=== PATIENT | female | born 1950 | race African-American/Black ===

== ENCOUNTER 2024-01-18 14:59 | Outpatient (REF) | payer MEDICARE, SELFPAY ==
[2024-01-18 16:22] LABS: Alanine Aminotransferase 7 U/L (0-31); Albumin Level 3.8 g/dL (3.5-5.0); Alkaline Phosphatase 72 U/L (39-117); Aspartate Amino Transferase 12 U/L (5-31); Bilirubin Direct 0.2 mg/dL (0.0-0.5); Bilirubin Total 0.4 mg/dL (0.0-1.0); Total Protein 7.3 g/dL (6.5-8.0)
[2024-01-18 16:45] LABS: Vitamin B12 470 pg/mL (200-900)
[2024-01-20 06:19] LABS: Lyme Abs Screen <0.90 index
== END 2024-01-18 15:00 | disposition home or self-care (01) ==
LOC: HO.LAB 14:59
PROVIDERS: PCP Family Medicine; Visit Provider Psychiatry & Neurology Neurology
DX: G30.9 Alzheimer's disease, unspecified (principal)
CPT/HCPCS: 36415; 80076; 82607; 86617; 86618

== ENCOUNTER 2025-02-25 07:52 | Outpatient (REF) | payer MEDICARE, SELFPAY ==
--- NOTE | ~2025-02-25 | MR_ITS ---
EXAMINATION: MR BRAIN WITHOUT CONTRAST CLINICAL INFORMATION: Alzheimer's dementia. COMPARISON: 10/05/2016. TECHNIQUE: MRI of the brain was obtained using routine sequences without contrast. Examination performed on a 1.5 Kelsey Siemens high-field unit. FINDINGS: There is no diffusion restriction. There is no intracranial hemorrhage, acute infarction, mass effect, or edema. Cisternal and sulcal prominence overlying the parietal lobes bilaterally, and lesser prominence overlying the frontal lobes. No definite temporal lobe atrophy or dilatation of the temporal horns. No shift of midline. 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 There are a few scattered punctate and minimally confluent foci of white matter T2 hyperintensity in the periventricular, subcortical, and hemispheric deep white matter. These foci are nonspecific but statistically most likely relate to mild small vessel ischemic changes. Midline structures appear normally formed. Mild diffuse thinning of the corpus callosum. Partial empty sella present. Posterior fossa structures appear normal. Cerebellar tonsils are appropriately located. Major flow voids are preserved within the skull base. The globes and orbital contents demonstrate no abnormalities. Paranasal sinuses are clear bilaterally. Nasal septum is midline without spur. The mastoids and tympanic cavities are normally aerated. Extracranial soft tissues demonstrate no abnormalities. No suspicious bone marrow changes are evident. Atlantoaxial joint demonstrates mild to moderate degenerative changes. Mild TM joint degenerative changes present bilaterally. MR/MR head/brain wo con IMPRESSION: 1. No evidence of intracranial hemorrhage, acute infarction, mass effect, or edema. 2. Volume loss of the bilateral parietal greater than frontal lobes. 3. Mild small vessel ischemic changes. Electronically signed by: Demetrius Calhoun MD 02/25/2025 10:56 AM EDT
--- OUTSIDE RECORDS SUMMARY | 2025-02-25 07:55 | XMS_ITS | Data Portability ---
Author Organization [facility], [address] Address [address] [place] [address] Care Team Providers Care Learn To Swim Instructor Name Role Phone [facility] Care Provider Assessment No assessment recorded. Plan of Treatment Reminders Order Date Submit Date Provider Last Modified By Organization Details Last Modified Time Details Appointments None recorde d. Lab None recorde d. Referral None recorde d. Procedures None recorde d. Surgeries None recorde d. Imaging XR, toe(s) - right 5th toe. 023 05/31/20 23 [email or web address] [facility], [address] [facility] [place], [address], 12:28:34 Medication Orders None recorde d. Patient TargetsNo targets recorded. Patient Instructions Encounter Date Encounter Id Patient Instructions Last Modified By Organization Details Last Modified Time 05/31/2023 [id number] learning about rice (rest, ice, compression, and elevation) [email or web address] Not available 05/31/2023 18:54:03 contusion: care instructions [email or web address] Not available 05/31/2023 19:28:16 broken toe: care instructions [email or web address] Not available 05/31/2023 19:29:26 Keep toes loren taped as instructed for 4-6 weeks. Tape and padding can be changed/re-applied when soiled or wet. If tape is too tight, re-adjust until comfortable. Use the cast shoe for support while walking. Elevate your foot as much as possible. Over the counter tylenol may be taken if needed for pain. See printed instructions. Follow-up with your doctor in one week. Seek Emergency Medical evaluation for any worsening symptoms, particularly for uncontrolled pain, numbness or weakness or discoloration of the digit. [email or web address] Not available 05/31/2023 19:32:00 Reason for Referral None Reported. Results Created Date Observation Date Name Description Value Unit Range Abnormal Flag Note LastModifiedBy Organization Detail LastModifiedTime 05/31/20 23 05/31/2023 [email or web address] No observ ation record ed. [email or web address] [facility] [address] [facility], [place], [address], 06/01/2023 07:54:29 Result Notes None recorded. Problems Name Problem SNOMED Code Status Onset Date Resolution Date Notes Provider Name and Address Organization Details Recorded Time Asthma 011668555 Active 2022 Leny Forrest null, [place] - [facility] 3 18:45:29 Hypertensiv e disorder 86961167 Active 2022 Leny Forrest null, PA - [facility] 3 18:45:49 Mild dementia 6381669916721 08 Active 2022 Leny Forrest null, PA - [facility] 3 18:50:07 Problem Notes None recorded. Procedures Surgical History Date Name Laterality Status Provider Name and Address Organization Details Recorded Time 05/31/2023 LOREN TAPE completed Lina Aguilar MD [address] [place], [address], [place] - [facility] 05/31/2023 19:29:24 Imaging Results None recorded. Procedure Notes None recorded. Medical Equipment None Reported. Allergies Allergen ID Allergen Name Allergen Category Reaction Reaction Severity Criticality Documentation Date Start Date Code Code System Note Provider Name and Address Organization Details Recorded Time 786686 shellfish derived food,medi cation hives moderate high 05/31/2023 [id number] Leny Forrest null, [place] - [facility] 3 18:42:00 Medications Name Sig Start Date Stop Date Status Note LastModified by Organization Details LastModified Time atorvastatin active Not Available Not Available Not Available albuterol sulfate active Not Available Not Available Not Available lisinopril active Not Available Not Av ailable Not Available Vitals Date Recorded Body height Body mass index (BMI) Body weight Body temperature Heart rate Respiratory rate Oxygen saturation Oxygen saturation in Arterial blood by Pulse oximetry Systolic And Diastolic Provider Name and Address Organization Details Last Updated DateTime 162.56 cm 29.5 kg/m2 18537.8 9 g 97.2 [degF] 73 /min 18 /min 99 % 99 % 127/77 mm[Hg] Leny LONGORIA - [facility] 18:41:30 Social History Question Answer Notes LastModified by [employer] Details LastModified Time Tobacco Smoking Status Never Smoker Leny hampton [place] - [facility] 05/31/2023 18:47:38 What Is The Highest Grade Or Level Of School You Have Completed Or The Highest Degree You Have Received? TI36145-1 [email or web address] Information not available 05/31/2023 Have You Had A Flu Shot This Season? No [email or web address] Information not available 05/31/2023 If No, Would You Like A Flu Shot Today? No [email or web address] Information not available 05/31/2023 What Is Your Water Source? City [email or web address] Information not available 05/31/2023 What Is Your Heat Source? Other Oil Gas [email or web address] Information not available 05/31/2023 Have You Had Direct Contact, Or Contact During Intimacy, With Monkeypox Rash, Scabs, Or Body Fluids From A Person With Monkeypox? No [email or web address] Information not available 05/31/2023 What Was The Date Of Your Most Recent Tobacco Screening? 05/31/2023 [email or web address] Information not available 05/31/2023 What Is Your Relationship Status? [email or web address] Information not available 05/31/2023 Have You Recently Traveled Abroad? No [email or web address] Information not available 05/31/2023 Are You Currently In School? No Information not available 05/31/2023 Sex: Unknown Functional Status Question Answer Note LastModified by [employer] Details LastModified Time Do you use any illicit or recreational drugs? No [email or web address] Information not available 05/31/2023 Do you or have you ever used any other forms of tobacco or nicotine? No [email or web address] Information not available 05/31/2023 What is your level of alcohol consumption? None [email or web address] Information not available 05/31/2023 Are you currently employed? No retired [email or web address] Information not available 05/31/2023 Mental Status None recorded. Family History Nothing Reported Notes:not to patients knowle dge Medical History No medical history recorded. Gynecological History Statement/Question Response Date of LMP LMP N/A Obstetrics History GPAL:G 0 P 0 0 0 0 Past Encounters Encounter ID Performer Location Encounter Start Date Encounter Closed Date Diagnosis/Indication Diagnosis SNOMED-CT Code Diagnosis ICD10 Code Diagnosis Note [id number] [place]ilar [place] [address] [place] [address] 05/31/2023 17:17:33 05/31/2023 19:33:30 Contusion of lesser toe of right foot 5098305302 2280685 S90.121A Closed fra cture proximal phalanx, toe 339322249 S92.911A Health Concerns Section Related Observation LastModified by Organization Detai ls LastModified Time None Recorded Concern Status LastModified by Organization Details LastModified Time None Recorded Advance Directives Directive None Recorded Payers Insurance Date Sequence Insurance Name Policy Number Policy [place] Covered Member ID [place] Member ID Guarantor Name 05/31/2023 1 [employer] (POS) [id number] Dana Crowell [id number] Dana Sifuentes d Notes Date Note Type Note Provider Name and Address Organization Details Recorded Time 3 text/html ToesReported bypatient.source of patient informationInformation obtained from patient; Patient arrived at Urgent Care ambulatory Location:right; diffuse 5th toe Quality:aching Severity:moderate Duration:3 days Timing:acute Context:Struck toe twice - once on shower wall and once on bed post. Alleviating Factors:rest Aggravating Factors:standing; weightbearing Associated Symptoms:no weakness; no numbness; no tingling; no swelling; no redness; no warmth; no ecchymosis; no catching/locking; no popping/clicking; no buckling; no grinding; no instability; no drainage; no fever; no chills Previous Surgery:none Prior Imaging:none Previous Injections:none Previous PT:noneNotes:73 year old female presenting for evaluation of right 5th toe pain after accidentally striking it on a shower wall and on a bed post 3 days ago. No swelling, redness, numbness or weakness of the digit. The pain is worse with movement, palpation and weight bearing. Lina Aguilar MD [address] [place], [address], [place] - [facility] 05/31/2023 19:36:22 OBGyn Episode No OBEpisode recorded.
--- OUTSIDE RECORDS SUMMARY | 2025-02-25 07:55 | XMS_ITS | Clinical Summary ---
Author Organization [facility] Address [address] [place] [address] Phone Care Team Providers Care Water Attendant Name Role Phone Thanh Heaton MD Primary Care Pr ovider Allergies Active Allergy Reactions Criticality Noted Date Comments Shellfish Derived 06/13/2009 Medications lisinopril-hydroC HLOROthiazide (PRINZIDE,ZESTORE TIC) 10-12.5 mg per tabletIndications :Essential hypertension,CKD stage 3a, GFR 45-59 ml/min ([facility] V24, CMS/HCC V28) Take 1 tablet by mouth 1 (one) time each day. 90 tablet 1 025 Active montelukast (SINGULAIR) 10 mg tabletIndications :Asthma-COPD overlap syndrome (CMS/HCC V24, CMS/HCC V28) Take 1 tablet (10 mg total) by mouth at bedtime. 90 each 1 025 Active atorvastatin (LIPITOR) 10 mg tabletIndications :Mixed hyperlipidemia Take 1 tablet (10 mg total) by mouth 1 (one) time each day in the evening. 90 each 1 025 Active budesonide-formot Kaila (SYMBICORT) 80-4.5 mcg/actuation inhalerIndication s:Asthma-COPD overlap syndrome ([facility] V24, CMS/[facility] V28) Inhale 2 puffs by mouth 2 (two) times a day. Rinse mouth with water after use to reduce aftertaste and incidence of candidiasis. Do not swallow. 1 each 1 025 2024 Active albuterol 2.5 mg /3 mL (0.083 %) nebulizer solutionIndicatio ns:Asthma-COPD overlap syndrome ([facility] V24, [facility] V28) Take 3 mL (2.5 mg total) by nebulization every 8 (eight) hours if needed for wheezing. 75 mL 1 Active ergocalciferol (VITAMIN D-2) 1,250 mcg (50,000 unit) capsuleIndication s:Vitamin D deficiency Take 1 capsule (50,000 Units total) by mouth 1 (one) time per week. 12 capsule 025 2024 Active albuterol HFA (PROAIR HFA ; PROVENTIL HFA ; VENTOLIN HFA) 90 mcg/actuation inhalerIndication s:Asthma-COPD overlap syndrome ([facility] V24, [facility] V28) INHALE 1 PUFF BY MOUTH EVERY 6 (SIX) HOURS IF NEEDED FOR WHEEZING. 8.5 each 1 Active albuterol HFA (PROAIR HFA ; PROVENTIL HFA ; VENTOLIN HFA) 90 mcg/actuation inhalerIndication s:Asthma-COPD overlap syndrome ([facility] V24, [facility] V28) Inhale 1 puff by mouth every 6 (six) hours if needed for wheezing. 18 each 1 025 2024 Discontinued Active Problems Problem Noted Date Diagnosed Date Vitamin D deficiency 12/21/2024 Other idiopathic scoliosis, thoracolumbar region 12/19/2024 Spondylosis of lumbar region without myelopathy or radiculopathy 12/19/2024 CKD stage 3a, GFR 45-59 ml/min ([facility] V24, [facility] V28) 05/28/2024 Assessment & Plan (12/19/2024 4:46 PM EDT): Continue blood pressure control. Goal is less than 130/80. Will update labs Orders: lisinopril-hydroCHLOROthiazide (PRINZIDE,ZESTORETIC) 10-12.5 mg per tablet; Take 1 tablet by mouth 1 (one) time each day. Comprehensive metabolic panel; Future CBC and differential; Future Thyroid stimulating hormone with reflex to free t4 and free t3; Future Hyperlipidemia 05/28/2024 Assessment & Plan (12/19/2024 4:46 PM EDT): well-controlled. Continue atorvastatin Orders: atorvastatin (LIPITOR) 10 mg tablet; Take 1 tablet (10 mg total) by mouth 1 (one) time each day in the evening. Lipid panel with reflex to direct LDL; Future Mild Alzheimer's dementia wi thout behavioral disturbance, psychotic disturbance, mood disturbance, or anxiety (CMS/HCC V24, CMS/HCC V28) 05/28/2024 Assessment & Plan (12/19/2024 4:46 PM EDT): She is due for follow-up with her neurologist and a referral was placed Orders: Ambulatory referral to Neurology; Future Prediabetes 06/20/2023 Assessment & Plan (12/19/2024 4:46 PM EDT): Last A1c was 6.2. Will update labs Orders: Hemoglobin A1c; Future MCI (mild cognitive impairment) with memory loss 11/10/2020 BETI (obstructive sleep apnea) 01/01/2020 Assessment & Plan (12/19/2024 4:48 PM EDT): She has never been on CPAP and I do not have any records of her previous sleep studies but there is a diagnosis of BETI on her chart dating back to 2019. Referred to sleep medicine for repeat sleep testing and treatment if needed Orders: Ambulatory referral to Sleep Medicine; Future Overweight (BMI 25.0-29.9) 05/01/2019 Essential hypertension 12/22/2017 Assessment & Plan (12/19/2024 4:46 PM EDT): Well-controlled. Continue current medication Orders: lisinopril-hydroCHLOROthiazide (PRINZIDE,ZESTORETIC) 10-12.5 mg per tablet; Take 1 tablet by mouth 1 (one) time each day. 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 albuterol prn Assessment & Plan (12/19/2024 4:46 PM EDT): Advised to use Symbicort twice daily as prescribed. Continue albuterol as needed and Singulair nightly. Will update PFTs. Given the dyspnea on exertion which is mild , likely related to her asthma/COPD and has been ongoing for several months, will check BNP Her last echocardiogram was in May 2019 and completely normal Orders: montelukast (SINGULAIR) 10 mg tablet; Take 1 tablet (10 mg total) by mouth at bedtime. budesonide-formoteroL (SYMBICORT) 80-4.5 mcg/actuation inhaler; Inhale 2 puffs by mouth 2 (two) times a day. Rinse mouth with water after use to reduce aftertaste and incidence of candidiasis. Do not swallow. albuterol HFA (PROAIR HFA ; PROVENTIL HFA ; VENTOLIN HFA) 90 mcg/actuation inhaler; Inhale 1 puff by mouth every 6 (six) hours if needed for wheezing. albuterol 2.5 mg /3 mL (0.083 %) nebulizer solution; Take 3 mL (2.5 mg total) by nebulization every 8 (eight) hours if needed for wheezing. Pulmonary function testing: Spirometry, Spirometry with Bronchodilator B-type natriuretic peptide; Future Encounters Date Type Department Care Team Description 12/19/2024 3:00 PM EDT Office Visit Adult Medicine [address] [phone] Thanh Heaton MD Annual physical exam (Primary Dx); Asthma-COPD overlap syndrome ([facility] V24, [facility] V28); Essential hypertension; Mixed hyperlipidemia; CKD stage 3a, GFR 45-59 ml/min ([facility] V24, [facility] V28); Prediabetes; Mild early onset Alzheimer's dementia without behavioral disturbance, psychotic disturbance, mood disturbance, or anxiety ([facility] V24, [facility] V28); BETI (obstructive sleep apnea); Need for vaccination against Streptococcus pneumoniae; Osteopenia of multiple sites from Last 3 Months Immunizations Name Administration Dates Next Due Pneumococcal conjugate 20 va lent (Prevnar 20, PCV 20) 2mo and older 12/19/2024 Td Tetanus diptheria (Tdvax) 7yo and older 09/10,12/09/2006 Surgical History Surgery Date Site/Laterality Comments CERVICAL BIOPSY W/ LOOP ELECTRODE EXCISION 03/28 PROCEDURE: GA CONIZATION CERVIX W/WO D&C RPR ELTRD EXC; COMMENT: BARBARA III in deep endocervical glands, margins free COLONOSCOPY 09/20/2024 no repeat needed Medical History Medical History Date Comments Unspecified asthma(493.90) DX:Un specified asthma(493.90) Other specified personal his tory presenting hazards to health(V15.89) 08-31-05 DX:Other specifie d personal history presenting hazards to health(V15.89); COMMENT: Moderate Dysplasia Unspecified asthma(493.90) 12/08/2006 DX:Un specified asthma(493.90); COMMENT: on advair and singular baseline. 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 DX:Carcinoma in situ of cervix uteri; COMMENT: LEEP with BARBARA III in deep endocervical glands Obesity DX:Obesity Essential hypertension 12/22/2017 Family History Medical History Relation Name Comments Other: gout Father Hypertension Mother alzheimers, d age 83 Heart attack Sister 1 glaucoma Thyroid disease Sister 2 Breast cancer Neg Hx Colon cancer Neg Hx Ovarian cancer Neg Hx Relation Name Status Comments Father Maternal Grandfather Maternal Grandmother Mother Paternal Grandfather Paternal Grandmother Sister 1 Sister 2 Social History Tobacco Use Types Packs/Day Years Used Date Smoking Tobacco: Former Smokeless Tobacco: Never Tobacco Cessation:Counseling Given: Not Answered Comments:She quit smoking about 50 years; smoked 1 Cig a day for about 2 years Alcohol Use Standard Drinks/Week Comments No 0 (1 standard drink = 0.6 oz pur e alcohol) Housing Instability Answer Date Recorde d Are you worried that in the next 2 months you may not have stable housing? No 12/19/2024 Food Access & Nutrition Answer Date Rec orded Do you have access to a vari ety of food including fruits and vegetables? Yes 12/19/2024 Access to Healthcare Answer Date Record ed Within the last 3 months, ho w many times did you visit the emergency department for your medical care? 0 12/19/2024 Health Literacy Answer Date Recorded How often do you need to hav e someone help you when you read instructions, pamphlets, or other written material from your doctor or pharmacy? Never 12/19/2024 Caregiver: How often do you need to have someone help you when you read instructions, pamphlets, or other written material from your doctor or pharmacy? Not on file 12/19/2024 Financial Risk Answer Date Recorded How hard is it for you to pa y for the very basics like food, housing, medical care, and air conditioning / heating? Not very hard 12/19/2024 Transportation Answer Date Recorded Has the lack of transportati on kept you from meetings, work, or from getting things needed for daily living? No Has the lack of transportati on kept you from medical appointments or from getting medications? No 12/19/2024 Social Isolation Answer Date Recorded How often do you feel lonely or isolated from th ose around you? Never 12/19/2024 Food Risk Answer Date Recorded Within the past 12 months we worried whether our food would run out before we got money to buy more. Never true 12/19/2024 Within the past 12 months th e food we bought just didn't last and we didn't have money to get more. Never true 12/19/2024 Dependent Care Answer Date Recorded Do you need help finding or paying for care for your loved ones. For example, childcare director or elderly care for an older adult? No 12/19/2024 Education Answer Date Recorded Do you think completing more education or training, like finishing a GED, going to college, or learning a trade, would be helpful for you? No 12/19/2024 Employment and Income Answer Date Recor ded During the last four weeks, have you been actively looking for work? No 12/19/2024 Living Situation Answer Date Recorded What is your living situation? 0 12/19/2024 Interpersonal Safety Answer Date Record ed Physical Abuse 09/20/2024 Verbal Abuse 09/20/2024 Comments No Sex and Gender Information Value Date Recorded Sex Assigned at Not on file Legal Sex Female 9:53 AM EST Gender Identity Not on file Sexual Orientation Not on file Obstetrics History Last Filed Vital Signs Vital Sign Reading Time Taken Comments Blood Pressure 115/65 12/19/2024 3:07 PM EDT Pulse 66 12/19/2024 3:07 PM EDT Temperature 36.6 C (97.8 F) 12/19/2024 3:07 PM EDT Respiratory Rate 17 12/19/2024 3:07 PM EDT Oxygen Saturation 97% 09/20/2024 10:20 AM EST Inhaled Oxygen Concentration - - Weight 76.2 kg (168 lb) 12/19/2024 3:07 PM EDT Height 166.4 cm (5' 5.5 ) 12/19/2024 3:07 PM EDT Body Mass Index 27.53 12/19/2024 3:07 PM EDT Plan of Treatment Upcoming Encounters Date Type Department Care Team (Late st Contact Info) Description 06/27/2025 1:30 PM EST Appointment Radiology Department [address] [phone] Health Maintenance Due Date Last Done Comments COVID-19 Vaccine (#1) 1956 Zoster Vaccines (1 of 2) 1970 RSV Immunization Adult Patients (1 - Risk 60-74 years 1-dose series) 2011 Medicare Annual Wellness Visit 07/31/2022 Influenza Vaccine (#1) 2025 Falls Risk Assessment 09/20/2025 09/20/2024 Depression Screening 12/19/2025 12/19/2024 Social Influencers of Health Screening 12/19/2025 12/19/2024 Hypertension/CHF/CAD Annual BMP Blood Test 12/20/2025 12/20/2024, 05/30/2024, 05/30/2024 Breast Cancer Screening 06/06/2026 06/06/20 24, 06/06/2024, 05/31/2023, Additional history exists Cholesterol Screening (Lipid Panel) 12/20/2029 12/20/2024, 05/30/2024, 05/30/2024 DTaP,Tdap,and Td Vaccines (3 - Td or Tdap) 09/10/2031 09/10/2021, 12/09/2006 Osteoporosis Screening (Bone Density Screening) 05/31/2033 05/31/2023 Hepatitis C Screening Completed 12/11/2013 Colorectal Cancer Screening: Colonoscopy Discontinued 09/20/2024 Pneumococcal Vaccine: 50+ Years Completed 12/19/2024 HIB Vaccines Aged Out No longer eligi ble based on patient's age to complete this topic HPV Vaccines Aged Out No longer eligi ble based on patient's age to complete this topic Hepatitis A Vaccines Aged Out No long er eligible based on patient's age to complete this topic Hepatitis B Vaccines Aged Out No long er eligible based on patient's age to complete this topic IPV Vaccines Aged Out No longer eligi ble based on patient's age to complete this topic MMR Vaccines Aged Out No longer eligi ble based on patient's age to complete this topic Meningococcal ACWY Vaccine Aged Out N o longer eligible based on patient's age to complete this topic Meningococcal B Vaccine Aged Out No l onger eligible based on patient's age to complete this topic RSV Immunization Patients Under 20 months Aged Out No longer eligible based on patient's age to complete this topic Varicella Vaccines Aged Out No longer eligible based on patient's age to complete this topic Procedures Procedure Name Priority Date/Time Associated Diagnosis Comments THYROID STIMULATING HORMONE Routine 01/04/2025 2:39 PM EDT Alzheimer's disease ([facility]/HCC V24, CMS/[facility] V28) VITAMIN B12 Routine 01/04/2025 2:39 PM EDT Alzheimer's disease (CMS/HCC V24, CMS/HCC V28) CBC WITH AUTO DIFFERENTIAL Routine 12/20/2024 11:01 AM EDT CKD stage 3a, GFR 45-59 ml/min (CMS/HCC V24, CMS/HCC V28) COMPREHENSIVE METABOLIC PANEL Routine 12/20/2024 11:01 AM EDT CKD stage 3a, GFR 45-59 ml/min (CMS/HCC V24, [facility] V28) LIPID PANEL WITH REFLEX TO DIRECT LDL Routine 12/20/2024 11:01 AM EDT Mixed hyperlipidemia HEMOGLOBIN A1C Routine 12/20/2024 11:01 AM EDT Prediabetes CBC AND DIFFERENTIAL Routine 12/20/2024 11:01 AM EDT CKD stage 3a, GFR 45-59 ml/min ([facility]/HCC V24, CMS/HCC V28) B-TYPE NATRIURETIC PEPTIDE Routine 12/20/2024 11:01 AM EDT Asthma-COPD overlap syndrome ([facility] V24, [facility] V28) THYROID STIMULATING HORMONE WITH REFLEX TO FREE T4 AND FREE T3 Routine 12/20/2024 11:01 AM EDT Essential hypertension CKD stage 3a, GFR 45-59 ml/min ([facility] V24, [facility] V28) VITAMIN D 25 HYDROXY Routine 12/20/2024 11:01 AM EDT Osteopenia of multiple sites COLONOSCOPY Routine 09/20/2024 9:59 AM EST Special screening for malignant neoplasms, colon SCREENING MAMMOGRAPHY BI 2-VIEW BREAST INC CAD Routine 06/06/2024 2:19 PM EDT Encounter for screening mammogram for malignant neoplasm of breast DXA BONE DENSITY STUDY 1+ SITS AXIAL SKEL Routine 05/31/2023 2:09 PM EDT Encounter for screening for osteoporosis HEPATITIS C SCREENING Routine 12/11/2013 from Last 3 Months or Most Recently Relevant to Health Maintenance Results * Thyroid stimulating hormone (01/04/2025 2:39 PM EDT) TSH 1.55 0.40 - 4.00 mcIU/mL LAB CHEMISTRY METHOD 01/04/2025 8:[address] [facility] Blood Venous blood specimen / Unknown Venipuncture / Unknown 01/04/2025 2:39 PM EDT 01/04/2025 2:39 PM EDT Kemi Hoff MD LAB BLOOD ORDERABLES Final Result Performing Organization Address [facility]/ZIP Co de Phone Number [facility] [address] [place] [address], [place] [phone] * Vitamin B12 (01/04/2025 2:39 PM EDT) Vitamin B-12 438 250 - 900 pcg/mL LAB CHEMISTRY METHOD 01/04/2025 8:[address] [facility] Blood Venous blood specimen / Unknown Venipuncture / Unknown 01/04/2025 2:39 PM EDT 01/04/2025 2:39 PM EDT Kemi Hoff MD LAB BLOOD ORDERABLES Final Result Performing Organization Address [facility] Co de Phone Number [facility] [address] [place] [address], [place] [phone] * Thyroid stimulating hormone with reflex to free t4 and free t3 (12/20/2024 11:01 AM EDT) Pathologist [facility] TSH 2.38 0.40 - 4.00 mcIU/mL LAB CHEMISTRY METHOD 12/20/2024 3:[address] [facility] Blood Venous blood specimen / Unknown Venipuncture / Unknown 12/20/2024 11:01 AM EDT 12/20/2024 11:01 AM EDT Thanh Heaton MD LAB BLOOD ORDERA BLES Final Result Performing Organization Address [facility]/ZIP Co de Phone Number [facility] [address] [place] [address], [place] [phone] * (ABNORMAL) Lipid panel with reflex to direct LDL (12/20/2024 11:01 AM EDT) Cholesterol 139 0 - 200 mg/dL LAB CHEMISTRY METHOD 12/20/2024 2:[address] [facility] Triglycerides 110 0 - 150 mg/dL LAB CHEMISTRY METHOD 12/20/2024 2:[address] [facility] HDL 38(L) >=40 mg/dL LAB CHEMISTRY METHOD 12/20/2024 2:[address] [facility] LDL Calculated 79 0 - 100 mg/dL LAB CHEMISTRY METHOD 12/20/2024 2:[address] [facility] VLDL Cholesterol Asa 22 mg/dL LAB CHEMISTRY METHOD 12/20/2024 2:[address] [facility] Non HDL Chol. (LDL+VLDL) 101 <145 mg/dL LAB CHEMISTRY METHOD 12/20/2024 2:[address] [facility] Chol/HDL Ratio 3.7 0.0 - 4.4 LAB CHEMISTRY METHOD 12/20/2024 2:[address] [facility] Blood Venous blood specimen / Unknown Venipuncture / Unknown 12/20/2024 11:01 AM EDT 12/20/2024 11:01 AM EDT Thanh Heaton MD LAB BLOOD ORDERA BLES Final Result [facility] [address] [place] [address], [place] [phone] * (ABNORMAL) CBC auto differential (12/20/2024 11:01 AM EDT) WBC 4.9 4.8 - 10.8 K/mcL LAB HEMETOLOGY METHOD 12/20/2024 1:[address] [facility] RBC 4.00 3.80 - 4.80 M/mcL LAB HEMETOLOGY METHOD 12/20/2024 1:[address] [facility] Hemoglobin 11.9 11.5 - 16.0 g/dL LAB HEMETOLOGY METHOD 12/20/2024 1:[facility] Hematocrit 38.8 35.0 - 47.0 % LAB HEMETOLOGY METHOD 12/20/2024 1:[facility] MCV 97.0 79.0 - 98.0 FL LAB HEMETOLOGY METHOD 12/20/2024 1:[facility] MCH 29.8 27.0 - 32.0 pcg LAB HEMETOLOGY METHOD 12/20/2024 1:56 PM [facility] MCHC 30.7(L) 32.0 - 37.0 g/dL LAB HEMETOLOGY METHOD 12/20/2024 1:56 PM [facility] RDW 12.7 11.0 - 15.0 % LAB HEMETOLOGY METHOD 12/20/2024 1:[facility] Platelets 344 130 - 400 K/mcL LAB HEMETOLOGY METHOD 12/20/2024 1:56 PM [facility] MPV 9.7 7.0 - 11.0 FL LAB HEMETOLOGY METHOD 12/20/2024 1:[facility] NRBC 0.0 <1.0 % LAB HEMETOLOGY METHOD 12/20/2024 1:[facility] NRBC Absolute 0.00 <0.10 K/mcL LAB HEMETOLOGY METHOD 12/20/2024 1:[facility] Neutrophils Relative 53.3 % LAB HEMETOLOGY METHOD 12/20/2024 1:[facility] Lymphocytes Relative 34.6 % LAB HEMETOLOGY METHOD 12/20/2024 1:[address] [facility] Monocytes Relative 8.4 % LAB HEMETOLOGY METHOD 12/20/2024 1:[address] [facility] Eosinophils Relative 2.9 % LAB HEMETOLOGY METHOD 12/20/2024 1:56 PM [facility] Basophils Relative 0.6 % LAB HEMETOLOGY METHOD 12/20/2024 1:56 PM [facility] Immature Granulocytes Relative 0.2 % LAB HEMETOLOGY METHOD 12/20/2024 1:56 PM [facility] Neutrophils Absolute 2.61 1.50 - 7.00 K/mcL LAB HEMETOLOGY METHOD 12/20/2024 1:56 PM [facility] Lymphocytes Absolute 1.69 1.00 - 5.00 K/mcL LAB HEMETOLOGY METHOD 12/20/2024 1:56 PM [facility] Monocytes Absolute 0.41 0.20 - 1.00 K/mcL LAB HEMETOLOGY METHOD 12/20/2024 1:56 PM [facility] Eosinophils Absolute 0.14 0.00 - 0.50 K/mcL LAB HEMETOLOGY METHOD 12/20/2024 1:56 PM [facility] Basophils Absolute 0.03 0.00 - 0.20 K/mcL LAB HEMETOLOGY METHOD 12/20/2024 1:56 PM [facility] Immature Granulocytes Absolute 0.01 0.00 - 0.03 K/mcL LAB HEMETOLOGY METHOD 12/20/2024 1:56 PM [facility] Blood Venous blood specimen / Unknown Venipuncture / Unknown 12/20/2024 11:01 AM EDT 12/20/2024 11:01 AM EDT Thanh Heaton MD LAB BLOOD ORDERA BLES Final Result Performing Organization Address [facility]/ZIP Co de Phone Number [facility] [address] [place] [address], * (ABNORMAL) Vitamin D 25 hydroxy (12/20/2024 11:01 AM EDT) Pathologist [facility] Vit D, 25-Hydroxy 11.8(L) 30.0 - 80.0 ng/mL LAB CHEMISTRY METHOD 12/20/2024 3:[address] [facility] Blood Venous blood specimen / Unknown Venipuncture / Unknown 12/20/2024 11:01 AM EDT 12/20/2024 11:01 AM EDT Thanh Heaton MD LAB BLOOD ORDERA BLES Final Result Performing Organization Address [facility]/ZIP Co de Phone Number [facility] [address] [place] [address], [place] [phone] * B-type natriuretic peptide (12/20/2024 11:01 AM EDT) [facility] BNP 13 <=100 pcg/mL LAB CHEMISTRY METHOD 12/20/2024 2:[address] [facility] Blood Venous blood specimen / Unknown Venipuncture / Unknown 12/20/2024 11:01 AM EDT 12/20/2024 11:01 AM EDT Thanh Heaton MD LAB BLOOD ORDERA BLES Final Result Performing Organization Address [facility]/ZIP Co de Phone Number [facility] [address] [place] [address], [place] [phone] * Hemoglobin A1c (12/20/2024 11:01 AM EDT) Pathologist [facility] Hemoglobin A1C 6.3 <6.5 % LAB CHEMISTRY METHOD 12/20/2024 10:[address] [facility] Mean Bld Glu Estim. 134 mg/dL LAB CHEMISTRY METHOD 12/20/2024 10:22 PM [facility] Blood Venous blood specimen / Unknown Venipuncture / Unknown 12/20/2024 11:01 AM EDT 12/20/2024 11:01 AM EDT Thanh Heaton MD LAB BLOOD ORDERA BLES Final Result [facility] [address] [place] [address], * (ABNORMAL) Comprehensive metabolic panel (12/20/2024 11:01 AM EDT) Sodium 141 133 - 145 mmol/L LAB CHEMISTRY METHOD 12/20/2024 2:55 PM [facility] Potassium 3.7 3.5 - 5.5 mmol/L LAB CHEMISTRY METHOD 12/20/2024 2:55 PM [facility] Chloride 106 96 - 110 mmol/L LAB CHEMISTRY METHOD 12/20/2024 2:55 PM [facility] CO2 30 21 - 32 mmol/L LAB CHEMISTRY METHOD 12/20/2024 2:55 PM [facility] Anion Gap 5 3 - 11 LAB CHEMISTRY METHOD 12/20/2024 2:55 PM [facility] Glucose 105(H) 70 - 100 mg/dL LAB CHEMISTRY METHOD 12/20/2024 2:55 PM [facility] BUN 21 5 - 25 mg/dL LAB CHEMISTRY METHOD 12/20/2024 2:55 PM [facility] Creatinine 0.96 0.50 - 1.10 mg/dL LAB CHEMISTRY METHOD 12/20/2024 2:55 PM [facility] eGFR 63 >=60 mL/min/1. 73m2 LAB CHEMISTRY METHOD 12/20/2024 2:[address] [facility] Comment:Calculation based on the Chronic Kidney Disease Epidemiology Collaboration (CKD-EPI) equation refit without adjustment for race. BUN/Creatinine Ratio 21.9 LAB CHEMISTRY METHOD 12/20/2024 2:[address] [facility] Calcium 9.5 8.5 - 10.5 mg/dL LAB CHEMISTRY METHOD 12/20/2024 2:[address] [facility] AST (SGOT) 11 10 - 42 unit/L LAB CHEMISTRY METHOD 12/20/2024 2:55 PM [facility] ALT (SGPT) 16 10 - 60 unit/L LAB CHEMISTRY METHOD 12/20/2024 2:55 PM [facility] Alkaline Phosphatase 80 42 - 121 unit/L LAB CHEMISTRY METHOD 12/20/2024 2:55 PM [facility] Total Protein 7.6 6.0 - 8.0 g/dL LAB CHEMISTRY METHOD 12/20/2024 2:55 PM [facility] Albumin 3.5 3.2 - 5.0 g/dL LAB CHEMISTRY METHOD 12/20/2024 2:55 PM [facility] Total Bilirubin 0.3 0.0 - 1.4 mg/dL LAB CHEMISTRY METHOD 12/20/2024 2:[address] [facility] Blood Venous blood specimen / Unknown Venipuncture / Unknown 12/20/2024 11:01 AM EDT 12/20/2024 11:01 AM EDT Thanh Heaton MD LAB BLOOD ORDERA BLES Final Result [facility] [address] [place] [address], * COLONOSCOPY Anesthesia - MAC; [facility] ENDOSCOPY (09/20/2024 9:59 AM EST) Anatomical Region Laterality Modality Other 09/20/2024 9:40 AM EST Impressions 09/20/2024 10:00 AM EST - Diverticulosis in the left colon. - The examination was otherwise normal on direct and retroflexion views. - No specimens collected. Recommendation: - Patient has a contact number available for emergencies. The signs and symptoms of potential delayed complications were discussed with the patient. Return to normal activities tomorrow. Written discharge instructions were provided to the patient. - Resume previous diet. - Continue present medications. - No repeat colonoscopy due to the absence of advanced adenomas. Narrative 09/20/2024 10:[address] [facility] Patient Name: Dana Crowell Procedure Date: 09/20/2024 9:40 AM Date of : 1950 Age: 74 Gender: Female Note Status: Finalized Attending MD: Corky Smith MD, Procedure Date No Time: 09/20/2024 Procedure: Colonoscopy Indications: Screening for colorectal malignant neoplasm Providers: Corky Smith MD Referring MD: Isaak Do MD Medicines: Monitored Anesthesia Care Complications: No immediate complications. Estimated Blood Loss: Estimated blood loss: none. Procedure: After I obtained informed consent, the scope was passed under direct vision. Throughout the procedure, the patient's blood pressure, pulse, and oxygen saturations were monitored continuously. The Olympus Pediatric Colonoscope was introduced through the anus and advanced to the cecum, identified by appendiceal orifice and ileocecal valve. The colonoscopy was performed without difficulty. The patient tolerated the procedure well. The quality of the bowel preparation was good. Findings: Multiple small and large-mouthed diverticula were found in the left colon. The exam was otherwise without abnormality on direct and retroflexion views. Procedure Code(s): --- Professional --- 17311, Colonoscopy, flexible; diagnostic, including collection of specimen(s) by brushing or washing, when performed (separate procedure) Diagnosis Code(s): --- Professional --- Z12.11, Encounter for screening for malignant neoplasm of colon K57.30, Diverticulosis of large intestine without perforation or abscess without bleeding CPT copyright 2020 [employer]. All rights reserved. The codes documented in this report are preliminary and upon electric gas appliances demonstrator review may be revised to meet current compliance requirements. MD Corky Hightower MD 09/20/2024 10:00:01 AM This report has been signed electronically.Cokry Smith MD Number of Addenda: 0 Note Initiated On: 09/20/2024 9:40 AM Scope In: Scope Out: Endoscopy Department at [facility] - [address] [place] [phone] Procedure Note Corky Smith MD - 09/20/2024 [facility] Patient Name: Dana Crowell Procedure Date: 09/20/2024 9:40 AM Date of : 1950 Age: 74 Gender: Female Note Status: Finalized Attending MD: Corky Smith MD, Procedure Date No Time: 09/20/2024 Procedure: Colonoscopy Indications: Screening for colorectal malignant neoplasm Providers: Corky Smith MD Referring MD: Isaak Do MD Medicines: Monitored Anesthesia Care Complications: No immediate complications. Estimated Blood Loss: Estimated blood loss: none. Procedure: After I obtained informed consent, the scope was passed under direct vision. Throughout theprocedure, the patient's blood pressure, pulse, and oxygen saturations were monitored continuously. TheOlympus Pediatric Colonoscope was introduced through theanus and advanced to the cecum, identified byappendiceal orifice and ileocecal valve. The colonoscopy was performed without difficulty. The patient tolerated the procedure well. The quality of the bowel preparation was good. Findings: Multiple small and large-mouthed diverticula were found in the left colon. The exam was otherwise without abnormality ondirect and retroflexion views. Procedure Code(s): --- Professional --- 51201, Colonoscopy, flexible; diagnostic, including collection of specimen(s) by brushing or washing,when performed (separate procedure) Diagnosis Code(s): --- Professional --- Z12.11, Encounter for screening for malignantneoplasm of colon K57.30, Diverticulosis of large intestine without perforation or abscess without bleeding CPT copyright 2020 [employer]. All rights reserved. The codes documented in this report are preliminary and upon electric gas appliances demonstrator reviewmay be revised to meet current compliance requirements. MD Corky Hightower MD 09/20/2024 10:00:01 AM This report has been signed electronically.Corky Smith MD Number of Addenda: 0 Note Initiated On: 09/20/2024 9:40 AM Scope In: Scope Out: Endoscopy Department at [facility] - [address] [place] [phone] IMPRESSION: - Diverticulosis in the left colon. - The examination was otherwise normal on directand retroflexion views. - No specimens collected. Recommendation: - Patient has a contact number available for emergencies. The signs and symptoms of potential delayed complications were discussed with thepatient. Return to normal activities tomorrow. Written discharge instructions were provided to thepatient. - Resume previous diet. - Continue present medications. - No repeat colonoscopy due to the absence ofadvanced adenomas. Isaak Do MD GI~PROCEDURE ORDERABLES Final Re sult * SCREENING MAMMOGRAPHY BI 2-VIEW BREAST INC CAD (06/06/2024 2:19 PM EDT) Anatomical Region Laterality Modality Radiographic Nany ging 05/31/2023 2:39 PM EDT Narrative 06/07/2024 10:00 AM EDT This is a summary report. The complete report is available in the patient's medical record. If you cannot access the medical record, please contact the sending organization for a detailed fax or copy. Full field digital screening tomosynthesis mammography, reviewed with CAD and compared to previous. The breasts are composed of fatty and fibroglandular tissue. No suspicious mass, architectural distortion or suspicious calcifications are identified. IMPRESSION: : No mammographic evidence of malignancy. BIRADS 1-Negative; N. Breast density: The breasts have scattered areas of fibroglandular density. 5 year breast cancer risk assessment 1.8 % Lifetime breast cancer risk assessment 4.2 % Breast cancer risk category Low (<15%) Location: [facility], [address] [place] [address], [phone], [phone] Procedure Note Ciro Berumen MD - 06/19/2024 This is a summary report. The complete report is available in thepatient's medical record. If you cannot access the medical record, pleasecontact the sending organization for a detailed fax or copy. Full field digital screening tomosynthesis mammography, reviewed with CADand compared to previous. The breasts are composed of fatty andfibroglandular tissue. No suspicious mass, architectural distortion orsuspicious calcifications are identified. IMPRESSION: : No mammographic evidence of malignancy. BIRADS 1-Negative; N. Breast density: The breasts have scattered areas of fibroglandulardensity. 5 year breast cancer risk assessment 1.8 % Lifetime breast cancer risk assessment 4.2 % Breast cancer risk category Low (<15%) Location: [facility], [address] [place] [address], [id number], [phone] Thanh Heaton MD IMG XR PROCEDURE S Final Result * DXA BONE DENSITY STUDY 1+ SITS AXIAL SKEL (05/31/2023 2:09 PM EDT) Anatomical Region Laterality Modality Bone Densitometr y 07/21/2022 10:5 1 AM EST Narrative 06/01/2023 9:14 PM EDT STUDY: DUAL ENERGY X-RAY ABSORPTIOMETRY / DXA REASON FOR EXAM: Female, 73 years old. other(see comments) TECHNIQUE: Bone Mineral Density (BMD) measurements of the lumbar spine and left hip were obtained using [employer] Discovery W ([id number]). COMPARISON: June 04, 2010 FINDINGS: L1-L4 BMD: 1.196 g/cm2 L1-L4 T score: 1.4. This corresponds to Normal bone density. This represents a 0.7 % increase in bone density compared with prior exam from June 04, 2010. Left femoral neck BMD: 0.680 g/cm2 Left femoral neck T score: -1.5. This corresponds to osteopenia. Left total hip BMD: 0.862 g/cm2 Left total hip T score: -0.7. This corresponds to Normal bone density. This represents a -12.2* % decrease in bone density compared with prior exam from June 04, 2010. * - Indicates a statistically significant change. FRAX score: 10 year risk of major osteoporotic fracture 7.4%, 10 year risk of hip fracture 1.3% IMPRESSION: IMPRESSION: Osteopenia Reference Information: The T-score is the number of standard deviations above or below the standard which is normal for young adults at their peak bone mineral density. The World Health Organization (WHO) interprets the T-scores as follows: At or above -1 SD Normal bone density Between -1 and -2.5 SD Osteopenia At or below -2.5 SD Osteoporosis Procedure Note Lloyd Milan - 09/27/2023 STUDY: DUAL ENERGY X-RAY ABSORPTIOMETRY / DXA REASON FOR EXAM: Female, 73 years old. other(see comments) TECHNIQUE: Bone Mineral Density (BMD) measurements of the lumbar spineand left hip were obtained using [employer] Discovery W ([id number]/N [id number]). COMPARISON: June 04, 2010 FINDINGS: L1-L4 BMD: 1.196 g/cm2 L1-L4 T score: 1.4. This corresponds to Normal bone density. This represents a 0.7 % increase in bone density compared with prior examfrom June 04, 2010. Left femoral neck BMD: 0.680 g/cm2 Left femoral neck T score: -1.5. This corresponds to osteopenia. Left total hip BMD: 0.862 g/cm2 Left total hip T score: -0.7. This corresponds to Normal bone density. This represents a -12.2* % decrease in bone density compared with priorexam from June 04, 2010. * - Indicates a statistically significant change. FRAX score: 10 year risk of major osteoporotic fracture 7.4%, 10 year riskof hip fracture 1.3% IMPRESSION: IMPRESSION: Osteopenia Reference Information: The T-score is the number of standard deviations above or below thestandard which is normal for young adults at their peak bone mineral density. The World HealthOrganization (WHO) interprets the T-scores as follows: At or above -1 SD Normal bone density Between -1 and -2.5 SD Osteopenia At or below -2.5 SD Osteoporosis Soledda [facility] IMG DXA PROCEDURES Final Result * Hepatitis C Screening (12/11/2013) Hepatitis C Screening abstracted Historical Provider HEALTH MAINTENANCE Final Result from Last 3 Months or Most Recently Relevant to Health Maintenance Insurance [employer] Care Teams Water Attendant Relationship Specialty Start Date End Date Thanh Heaton MD [address] [place] [id number] PCP - General 06/28/22
== END 2025-02-25 07:53 | disposition home or self-care (01) ==
LOC: HO.MRI 07:52
PROVIDERS: PCP Family Medicine; Visit Provider Psychiatry & Neurology Neurology
DX: G30.9 Alzheimer's disease, unspecified (principal)
CPT/HCPCS: 70551

== ENCOUNTER → 2025-02-25 07:55 | Outpatient (BNV) | payer MEDICARE, SELFPAY | PROVIDERS: PCP Family Medicine; Visit Provider Radiology Diagnostic Radiology | DX: G93.89 Other specified disorders of brain (principal) | CPT/HCPCS: 70551 ==